=== PATIENT | female | born 1995 | race African-American/Black ===

== ENCOUNTER 2021-04-01 11:06 | Emergency (ER) | payer OTHER ==
[~2021-04-01] VITALS: Ht 185.4 cm; Wt 79.4 kg
[2021-04-01] MEDS ORDERED: IV NORMAL SALINE 1000 ML BAG IV ONE (11:30)
[2021-04-01] MEDS ORDERED: PANTOPRAZOLE SODIUM 40 MG VIAL IV ONE (11:30)
--- NOTE | 2021-04-01 11:30 | NUR ---
[employer] OFFICER AT BEDSIDE. PT DENIES TRYING TO HURT SELF.
--- NOTE | 2021-04-01 11:43 | NUR ---
PT REFUSED HEPLOCK/IV MEDS
[2021-04-01] MEDS ORDERED: PANTOPRAZOLE SODIUM 40 MG VIAL ONE (11:44)
[2021-04-01 11:58] LABS: HEMATOCRIT 38.3 % (31.2-41.9); MEAN CORPUSCULAR HEMOGLOBIN 33.1 uug (24.7-32.8); MEAN CORPUSCULAR VOLUME 97.6 fL (75.5-95.3); PLATELET COUNT (AUTO) 217 K/uL (179-408)
[2021-04-01 12:02] LABS: CARBON DIOXIDE 26 mmol/L (21-32); CHLORIDE 101 mmol/L (98-107); CREATININE 0.6 mg/dL (0.6-1.3); GLUCOSE 113 mg/dL (74-106); POTASSIUM 3.4 mmol/L (3.5-5.1); UREA NITROGEN, BLOOD 6 mg/dL (7-18)
[2021-04-01 12:12] LABS: ALANINE AMINOTRANSFERASE 16 U/L (14-59); ALKALINE PHOSPHATASE 58 U/L (50-136); ASPARTATE AMINOTRANSFERASE 13 U/L (15-37); BILIRUBIN,DIRECT 0.1 mg/dL (0.0-0.2); BILIRUBIN,TOTAL 0.5 mg/dL (0.2-1.0); TOTAL PROTEIN, SERUM 7.7 g/dL (6.4-8.2)
[2021-04-01 12:17] LABS: LIPASE 42 U/L (73-393)
[2021-04-01] MEDS ORDERED: LORAZEPAM 1 MG TABLET ONE (12:44)
[2021-04-01] MEDS ORDERED: LORAZEPAM 0.5 MG TABLET PO ONE (12:45)
[2021-04-01] MEDS ORDERED: LORAZEPAM 2 MG/1 ML VIAL IV ONE (12:45)
--- NOTE | 2021-04-01 12:45 | NUR ---
PT REFUSES [employer] AT THIS POINT, SHE SAID SHE MIGHT CHANGE HER MIND.
--- NOTE | 2021-04-01 15:10 | NUR ---
Patient discharged to home in stable condition. Written and verbal after care instructions given. Patient verbalizes understanding of instructions. Stressed follow up or return to ER for worsening s/s.pt walks in steady gait. pt says feels better, ready to go home.
[2021-04-01 16:37] VITALS: BP 140/87
== END 2021-04-01 15:10 | disposition home or self-care (01) ==
LOC: ER 11:07
DX: R07.9 Chest pain, unspecified (principal); F15.10 Other stimulant abuse, uncomplicated; I45.10 Unspecified right bundle-branch block; F17.200 Nicotine dependence, unspecified, uncomplicated; F10.10 Alcohol abuse, uncomplicated; R03.0 Elevated blood-pressure reading, without diagnosis of hypertension
CPT/HCPCS: 36415; 70030-TC; 71045; 83690; 85025; 93005; A4663; C9113; J7030

== ENCOUNTER 2021-04-01 19:24 | Emergency (ER) | payer OTHER ==
[~2021-04-01] VITALS: Ht 185.4 cm; Wt 79.4 kg
--- NOTE | 2021-04-01 21:00 | NUR ---
Patient eloped. PATIENT WAS TRIAGED BUT WAS NOT SEEN BY ERMD.
== END 2021-04-01 21:00 | disposition left against medical advice (07) ==
LOC: ER 19:26
DX: Z53.21 Procedure and treatment not carried out due to patient leaving prior to being seen by health care provider (principal)